=== PATIENT | female | born 1990 | race Hispanic/Latino ===

== ENCOUNTER 2017-06-24 16:15 | Emergency (ER) | payer MEDICAID ==
--- NOTE | 2017-06-24 16:47 | ED PDOC ---
Upper Extremity Pain/Injury Time Seen by Provider: 06/24/17 16:41 Chief Complaint (Nursing): Finger,Hand,&Wrist Chief Complaint (Provider): Finger Dislocation History Per: Patient History/Exam Limitations: no limitations Onset/Duration Of Symptoms: Mins (30), Persistent Quality: Sharp, Aching, "Pain" Severity: Mild Exacerbating Factor(s): Movement Past Medical History Reviewed: Historical Data, Nursing Documentation, Vital Signs Vital Signs: Last Vital Signs Temp 98.1 F 06/24/17 16:24 Pulse 95 H 06/24/17 16:24 Resp 16 06/24/17 16:24 BP 157/89 H 06/24/17 16:24 Pulse Ox 99 06/24/17 16:24 - Family History Family History: States: Unknown Family Hx - Home Medications Home Medications: Ambulatory Orders Medication Instructions Recorded oxyCODONE/Acetaminophen [Percocet 1 ea PO QID #9 tab 06/24/17 5/325 mg Tab] - Allergies Allergies/Adverse Reactions: Allergies Allergy/AdvReac Type Severity Reaction Status Date / Time No Known Allergies Allergy Verified 06/24/17 16:24 Review of Systems ROS Statement: Except As Marked, All Systems Reviewed And Found Negative Musculoskeletal: Positive for: Hand Pain Physical Exam - Reviewed Nursing Documentation Reviewed: Yes Vital Signs Reviewed: Yes - Physical Exam Appears: Positive for: Well, Uncomfortable Head Exam: Positive for: ATRAUMATIC, NORMAL INSPECTION, NORMOCEPHALIC Skin: Positive for: Normal Color Cardiovascular/Chest: Positive for: Regular Rate, Rhythm. Negative for: Gallop , Murmur, Bradycardia, Tachycardia, Friction Rub Respiratory: Positive for: Normal Breath Sounds. Negative for: Accessory Muscle Use, Crackles, Rales, Rhonchi, Wheezing, Respiratory Distress, Plerual Rub Pulses-Carotid (L): 2+ Pulses-Carotid (R): 2+ Pulses-Radial (L): 2+ Pulses-Radial (R): 2+ Extremity: Positive for: Tenderness, Deformity (fourth digit of left hand deflected in the direction of the fifth digit). Negative for: Normal ROM ( fourth digit of left hand with deformity and no active ROM with passive ROM eliciting pain) - ECG O2 Sat by Pulse Oximetry: 99 Medical Decision Making Medical Decision Making: r/o fx over dislocation XR left hand if necessary reduce, split Disposition - Clinical Impression Clinical Impression: Fracture of finger, proximal, closed - Patient ED Disposition Is Patient to be Admitted: No Discussed With Dr.: Dyana Vines (follow up in office) Doctor Will See Patient In The: Office Counseled Patient/Family Regarding: Diagnosis, Need For Followup, Rx Given - Disposition Referrals: Dyana Vines MD [Staff Provider] - Disposition: Routine/Home Disposition Time: 18:33 Condition: GOOD Prescriptions: oxyCODONE/Acetaminophen [Percocet 5/325 mg Tab] 1 ea PO QID #9 tab Instructions: Finger Fracture (DC), Common Finger Injuries (DC), Finger Fracture Forms: [facility] ([facility])
[2017-06-24] MEDS ORDERED: Lidocaine 2% Inj (20ml) ONE (17:21)
--- NOTE | 2017-06-24 17:54 | RAD ---
PROCEDURE: Left Hand Radiographs. HISTORY: r/o fx COMPARISON: None. FINDINGS: BONES: Acute fracture involving the proximal phalanx of the left 4th digit. This appears to be an oblique fracture incompletely visualized related to the overlying ring. There does not appear to be an intra-articular component. JOINTS: Normal. No osteoarthritic changes. SOFT TISSUES: Soft tissue swelling attests to the acuity of the fracture. OTHER FINDINGS: None. IMPRESSION: Acute oblique fracture proximal phalanx 4th digit
--- NOTE | 2017-06-24 18:23 | RAD ---
PROCEDURE: Left Hand Radiographs. HISTORY: Postreduction radiographs COMPARISON: 06/24/2017 at 17:03 FINDINGS: BONES: Better visualization of comminuted oblique fracture proximal phalanx 4th digit. Approximately 1/2 shaft's with overriding of fracture fragments identified. JOINTS: Normal. No osteoarthritic changes. SOFT TISSUES: Soft tissue swelling attests to the acuity of the fracture. OTHER FINDINGS: None. IMPRESSION: No evidence of subluxation or dislocation. Comminuted oblique non articular fracture proximal phalanx left 4th digit.
--- NOTE | 2017-06-24 18:29 | RAD ---
PROCEDURE: Left Hand Radiographs. HISTORY: post redux COMPARISON: June 24, 2017. Time of the most recent examination: 17:50 FINDINGS: BONES: Stable comminuted fracture proximal phalanx left 4th digit JOINTS: Normal. No osteoarthritic changes. SOFT TISSUES: Soft tissue swelling attests to the acuity of the fracture. OTHER FINDINGS: None. IMPRESSION: No significant interval change compared to the prior examination(s).
[2017-06-24 18:40] VITALS: BP 130/76; PULSE 83; RESP 20; TEMP 97; O2SAT 98
== END 2017-06-24 18:40 | disposition home or self-care (01) ==
LOC: H.ER 16:15
DX: S62.617A Displaced fracture of proximal phalanx of left little finger, initial encounter for closed fracture (principal); X50.9XXA Other and unspecified overexertion or strenuous movements or postures, initial encounter; Y92.89 Other specified places as the place of occurrence of the external cause